=== PATIENT | female | born 1995 | race Caucasian/White ===

== ENCOUNTER → 2017-09-08 | Outpatient (CLI) | payer OTHER ==
[~2017-09-08] MED LIST: AZIT250 PO; AZO PO; CEPH500 PO; CODACE30 PO; CRANBERRY250 MG PO; Hydrocodone-Ap1 EA23 PO; LEVSOD75; METPRE4DP PO; NAPR500 PO; OXYACE5T PO; Pyridium200 MG PO
== END | disposition home or self-care (01) ==
LOC: LAB 10:02 → LAB SHORT 10:02
PROVIDERS: Obstetrics & Gynecology
DX: Z11.3 Encounter for screening for infections with a predominantly sexual mode of transmission (principal)
CPT/HCPCS: 87491; 87591; 87661

== ENCOUNTER → 2018-05-05 | Outpatient (CLI) | payer OTHER ==
[~2018-05-05] MED LIST changes: +ACYC400 PO; +FAMO20 PO; +HUMULIN N100 UNIT/1 SC; +Humalog100 UNIT/1 SC; +METF500C PO
== END ==
LOC: LAB SHORT 13:15 → LAB 13:15
DX: L98.8 Other specified disorders of the skin and subcutaneous tissue (principal); L02.411 Cutaneous abscess of right axilla
CPT/HCPCS: 87070; 87075; 87077; 87186; 87205

== ENCOUNTER 2018-05-19 11:58 | Day surgery (SDC) | payer OTHER | END 2018-05-19 22:48 | disposition home or self-care (01) | LOC: WOUND 11:58 | DX: L98.8 Other specified disorders of the skin and subcutaneous tissue (principal); E11.9 Type 2 diabetes mellitus without complications; E78.1 Pure hyperglyceridemia | CPT/HCPCS: 87070; 87075; 87205; G0463 ==

== ENCOUNTER 2018-05-26 00:58 | Day surgery (SDC) | payer OTHER | END 2018-05-26 23:59 | disposition home or self-care (01) | LOC: WOUND 00:58 | DX: Z48.00 Encounter for change or removal of nonsurgical wound dressing (principal); L98.8 Other specified disorders of the skin and subcutaneous tissue; E11.9 Type 2 diabetes mellitus without complications | CPT/HCPCS: G0463 ==

== ENCOUNTER → 2019-04-25 | Outpatient (CLI) | payer OTHER | END | disposition home or self-care (01) | LOC: LAB SHORT 12:45 → LAB 12:45 | DX: J02.9 Acute pharyngitis, unspecified (principal) | CPT/HCPCS: 87081; 87147 ==

== ENCOUNTER → 2019-06-10 | Outpatient (CLI) | payer OTHER | LOC: LAB SHORT 17:22 → LAB 17:22 | DX: L02.413 Cutaneous abscess of right upper limb (principal) | CPT/HCPCS: 87070; 87075; 87076; 87205 ==

== ENCOUNTER 2019-08-21 11:30 | Inpatient (IN) | payer OTHER ==
[~2019-08-21] VITALS: Ht 162.6 cm; Wt 133.0 kg
[2019-08-21 12:11] LABS: BASOPHILS ABSOLUTE AUTO 0.04 K/mm3 (0.00-0.23); BASOPHILS PERCENT AUTO 0 % (0-2); EOSINOPHILS ABSOLUTE AUTO 0.09 K/mm3 (0.00-0.68); EOSINOPHILS PERCENT AUTO 1 % (0-6); Hematocrit 38.7 % (33.0-51.0); Hemoglobin 12.7 g/dL (11.5-16.0); IMMATURE GRAN ABSOLUTE AUTO 0.06 K/mm3 (0.00-0.10); IMMATURE GRAN PERCENT AUTO 1 % (0-1); LYMPHOCYTES ABSOLUTE AUTO 2.26 K/mm3 (0.84-5.20); LYMPHOCYTES PERCENT AUTO 24 % (21-46); MONOCYTES ABSOLUTE AUTO 0.56 K/mm3 (0.16-1.47); MONOCYTES PERCENT AUTO 6 % (4-13); Mean Corpuscular HGB 27.3 pg (26.0-34.0); Mean Corpuscular HGB Conc 32.8 g/dL (31.5-36.5); Mean Corpuscular Volume 83 fL (80-100); Mean Platelet Volume 11.7 fL (9.1-12.4); NEUTROPHILS ABSOLUTE AUTO 6.62 K/mm3 (1.96-9.15); NEUTROPHILS PERCENT AUTO 69 % (41-73); Platelet Count 147 K/mm3 (150-400); RDW Coefficient Variation 13.8 % (11.7-14.2); RDW Standard Deviation 41.4 fL (35.1-46.3); Red Blood Cell Count 4.65 M/mm3 (3.80-5.20); White Blood Cell Count 9.63 K/mm3 (4.00-11.30)
[2019-08-21] MEDS ORDERED: TUMS500 MG PO (12:27)
[2019-08-21 12:34] LABS: Alanine Aminotransfer (ALT/SGP 13 U/L (12-78); Albumin/Globulin Ratio 0.4 (0.8-1.8); Alk Phos 97 U/L (50-136); Amylase, Blood 32 U/L (25-115); Anion Gap 8 mmol/L (6-16); Aspartate Aminotrans (AST/SGOT 11 U/L (12-37); Bilirubin, Total 0.2 mg/dL (0.1-1.0); Blood Urea Nitrogen 11 mg/dL (8-24); Bun/Creatinine Ratio 19.8 (12.0-20.0); CO2, Blood 21 mmol/L (21-32); Calcium, Blood 8.3 mg/dL (8.5-10.1); Chloride, Blood 107 mmol/L (98-108); Creatinine, Blood 0.56 mg/dL (0.40-1.00); Globulin, Blood 4.9 g/dL (2.2-4.0); Glomerular Filtration Rate >60 (60-); Glucose, Blood 204 mg/dL (70-99); Potassium, Blood 3.8 mmol/L (3.5-5.5); Sodium, Blood 136 mmol/L (136-145); Total Protein, Blood 6.9 g/dL (6.4-8.2)
[2019-08-21 13:29] LABS: Creatinine, Urine Random 36.7 mg/dL (27.00-270.00); Protein, Urine Random 27.4 mg/dL (0.0-11.9); Protein/Creat Ratio, Ur Random 0.7
[2019-08-22 03:43] LABS: BASOPHILS ABSOLUTE AUTO 0.04 K/mm3 (0.00-0.23); BASOPHILS PERCENT AUTO 0 % (0-2); EOSINOPHILS ABSOLUTE AUTO 0.11 K/mm3 (0.00-0.68); EOSINOPHILS PERCENT AUTO 1 % (0-6); Hematocrit 37.2 % (33.0-51.0); Hemoglobin 12.5 g/dL (11.5-16.0); IMMATURE GRAN ABSOLUTE AUTO 0.07 K/mm3 (0.00-0.10); IMMATURE GRAN PERCENT AUTO 1 % (0-1); LYMPHOCYTES ABSOLUTE AUTO 2.83 K/mm3 (0.84-5.20); LYMPHOCYTES PERCENT AUTO 29 % (21-46); MONOCYTES ABSOLUTE AUTO 0.58 K/mm3 (0.16-1.47); MONOCYTES PERCENT AUTO 6 % (4-13); Mean Corpuscular HGB 27.6 pg (26.0-34.0); Mean Corpuscular HGB Conc 33.6 g/dL (31.5-36.5); Mean Corpuscular Volume 82 fL (80-100); Mean Platelet Volume 11.3 fL (9.1-12.4); NEUTROPHILS ABSOLUTE AUTO 6.09 K/mm3 (1.96-9.15); NEUTROPHILS PERCENT AUTO 63 % (41-73); Platelet Count 143 K/mm3 (150-400); RDW Coefficient Variation 13.7 % (11.7-14.2); RDW Standard Deviation 40.4 fL (35.1-46.3); Red Blood Cell Count 4.53 M/mm3 (3.80-5.20); White Blood Cell Count 9.72 K/mm3 (4.00-11.30)
[2019-08-22] MEDS ORDERED: Novolin R100 UNIT/M SC (12:02)
[2019-08-22] MEDS ORDERED: Novolin R100 UNIT/M (12:03)
[2019-08-22] MEDS ORDERED: Humulin N100 UNIT/1 ×2 (12:04)
[2019-08-22] MEDS ORDERED: LEVSOD25 (12:06)
[2019-08-22 12:53] LABS: Protein, Urine Quantitative 41.1 mg/dL (0.0-11.9)
[2019-08-22 12:55] LABS: Creatinine Urine 58.2 mg/dL (27.00-270.00)
[2019-08-25 05:37] LABS: Protein, Urine Quantitative 53.8 mg/dL (0.0-11.9)
[2019-08-26 03:47] LABS: Source, Urine Clean Catch
[2019-08-26 03:49] LABS: Bilirubin, Urine Neg (Neg); Blood, Urine Neg (Neg); Glucose Qualitative, Urine Neg (Neg); Ketones, Urine Neg (Neg); Leukocyte Esterase, Urine 2+ (Neg); Nitrite, Urine Neg (Neg); Protein, Urine 1+ (Neg); Urobilinogen, Urine NORM (Normal); pH, Urine 6.5 (5.0-8.0)
[2019-08-26 03:56] LABS: Amorphous Light (0-Heavy); Appearance, Urine Hazy (Clear); Bacteria Rare /hpf; Color, Urine Yellow (P-Yellow); Red Blood Cells, Urine Not Seen /hpf (0-2); Squamous Epithelial Cells Mod /hpf (Few)
[2019-08-28 05:07] LABS: Alanine Aminotransfer (ALT/SGP 12 U/L (12-78); Albumin/Globulin Ratio 0.4 (0.8-1.8); Alk Phos 100 U/L (50-136); Anion Gap 8 mmol/L (6-16); Aspartate Aminotrans (AST/SGOT 14 U/L (12-37); Bilirubin, Total 0.4 mg/dL (0.1-1.0); Blood Urea Nitrogen 8 mg/dL (8-24); Bun/Creatinine Ratio 14.2 (12.0-20.0); CO2, Blood 20 mmol/L (21-32); Calcium, Blood 8.3 mg/dL (8.5-10.1); Chloride, Blood 110 mmol/L (98-108); Creatinine, Blood 0.56 mg/dL (0.40-1.00); Globulin, Blood 4.9 g/dL (2.2-4.0); Glomerular Filtration Rate >60 (60-); Glucose, Blood 78 mg/dL (70-99); Potassium, Blood 3.4 mmol/L (3.5-5.5); Sodium, Blood 138 mmol/L (136-145); Total Protein, Blood 6.9 g/dL (6.4-8.2)
[2019-08-28 05:29] LABS: BASOPHILS ABSOLUTE AUTO 0.04 K/mm3 (0.00-0.23); BASOPHILS PERCENT AUTO 0 % (0-2); EOSINOPHILS ABSOLUTE AUTO 0.07 K/mm3 (0.00-0.68); EOSINOPHILS PERCENT AUTO 1 % (0-6); IMMATURE GRAN ABSOLUTE AUTO 0.05 K/mm3 (0.00-0.10); IMMATURE GRAN PERCENT AUTO 1 % (0-1); LYMPHOCYTES ABSOLUTE AUTO 2.61 K/mm3 (0.84-5.20); LYMPHOCYTES PERCENT AUTO 27 % (21-46); MONOCYTES ABSOLUTE AUTO 0.54 K/mm3 (0.16-1.47); MONOCYTES PERCENT AUTO 6 % (4-13); Mean Corpuscular HGB 27.5 pg (26.0-34.0); Mean Corpuscular HGB Conc 33.3 g/dL (31.5-36.5); Mean Corpuscular Volume 83 fL (80-100); Mean Platelet Volume 12.2 fL (9.1-12.4); NEUTROPHILS ABSOLUTE AUTO 6.37 K/mm3 (1.96-9.15); NEUTROPHILS PERCENT AUTO 66 % (41-73); Platelet Count 164 K/mm3 (150-400); RDW Coefficient Variation 13.6 % (11.7-14.2); RDW Standard Deviation 40.3 fL (35.1-46.3); Red Blood Cell Count 4.72 M/mm3 (3.80-5.20); White Blood Cell Count 9.68 K/mm3 (4.00-11.30)
== END 2019-08-28 14:15 | disposition home or self-care (01) | DRG 831 ==
LOC: BC 11:30 → OBS 11:30 → BC 15:05
PROVIDERS: Family Medicine; Obstetrics & Gynecology; ADMIT Nurse Practitioner Obstetrics & Gynecology
DX: O10.913 Unspecified pre-existing hypertension complicating pregnancy, third trimester (principal); O24.12 Pre-existing type 2 diabetes mellitus, in childbirth; O98.513 Other viral diseases complicating pregnancy, third trimester; E11.9 Type 2 diabetes mellitus without complications; O99.283 Endocrine, nutritional and metabolic diseases complicating pregnancy, third trimester; E03.9 Hypothyroidism, unspecified; B00.9 Herpesviral infection, unspecified; O99.713 Diseases of the skin and subcutaneous tissue complicating pregnancy, third trimester; L73.2 Hidradenitis suppurativa; Z3A.34 34 weeks gestation of pregnancy
CPT/HCPCS: 36415; 36416; 59025; 80053; 81001; 81050; 82150; 82570; 82947; 83036; 83690; 84156; 84443; 85025; 87070; 87081; 87086; 87205; A9270-GY; C9113; J0690; J1815; J7120

== ENCOUNTER → 2019-12-05 | Outpatient (CLI) | payer OTHER ==
[~2019-12-05] MED LIST changes: +ACYC800; +Humulin N100 UNIT/1; +IBUP800 PO; +LABE200; +LABE200 PO; +LEVSOD25; +METF500 PO; +NIFE30ER PO; +Novolin R100 UNIT/M; +Novolin R100 UNIT/M SC; +Percocet 5-3251 EACH PO; +TUMS500 MG PO
== END | disposition home or self-care (01) ==
LOC: LAB 17:37 → LAB SHORT 17:37
DX: Z09 Encounter for follow-up examination after completed treatment for conditions other than malignant neoplasm (principal); Z86.14 Personal history of Methicillin resistant Staphylococcus aureus infection
CPT/HCPCS: 87070; 87075; 87205

== ENCOUNTER 2020-02-15 02:00 | Day surgery (SDC) | payer OTHER | END 2020-02-15 22:38 | disposition home or self-care (01) | LOC: WOUND 02:00 | DX: T81.31XA Disruption of external operation (surgical) wound, not elsewhere classified, initial encounter (principal); E11.9 Type 2 diabetes mellitus without complications; I10 Essential (primary) hypertension; E03.9 Hypothyroidism, unspecified; Z79.84 Long term (current) use of oral hypoglycemic drugs; Z79.899 Other long term (current) drug therapy | CPT/HCPCS: G0463 ==

== ENCOUNTER 2020-02-28 00:45 | Day surgery (SDC) | payer OTHER | END 2020-02-28 12:00 | disposition home or self-care (01) | LOC: WOUND 00:45 | DX: T81.31XD Disruption of external operation (surgical) wound, not elsewhere classified, subsequent encounter (principal); I10 Essential (primary) hypertension; E11.9 Type 2 diabetes mellitus without complications; E07.9 Disorder of thyroid, unspecified; F41.8 Other specified anxiety disorders; E78.1 Pure hyperglyceridemia; E88.81 Metabolic syndrome and other insulin resistance; Z79.84 Long term (current) use of oral hypoglycemic drugs; Z79.899 Other long term (current) drug therapy; Y83.8 Other surgical procedures as the cause of abnormal reaction of the patient, or of later complication, without mention of misadventure at the time of the procedure | CPT/HCPCS: G0463 ==

== ENCOUNTER 2020-03-20 00:17 | Day surgery (SDC) | payer OTHER | END 2020-03-20 23:17 | disposition home or self-care (01) | LOC: WOUND 00:17 | DX: T81.31XD Disruption of external operation (surgical) wound, not elsewhere classified, subsequent encounter (principal); I10 Essential (primary) hypertension; E11.9 Type 2 diabetes mellitus without complications; E07.9 Disorder of thyroid, unspecified; F41.8 Other specified anxiety disorders; E78.1 Pure hyperglyceridemia; E88.81 Metabolic syndrome and other insulin resistance; Z79.84 Long term (current) use of oral hypoglycemic drugs; Z79.899 Other long term (current) drug therapy; Y83.8 Other surgical procedures as the cause of abnormal reaction of the patient, or of later complication, without mention of misadventure at the time of the procedure | CPT/HCPCS: G0463 ==

== ENCOUNTER → 2020-05-03 | Outpatient (CLI) | payer OTHER ==
[~2020-05-03] MED LIST changes: +ONDA4ODT MM
[2020-05-04 11:44] LABS: Candida species (DNA Probe) Positive (NEGATIVE); G. vaginalis (DNA Probe) Negative (NEGATIVE); T. vaginalis (DNA Probe) Negative (NEGATIVE)
[2020-05-05 08:08] LABS: HIV SCREEN 4TH GENERATION WRFX Non Reactive (Non Reactive)
[2020-05-06 06:08] LABS: CHLAMYDIA TRACHOMATIS, NAA Negative (Negative)
== END ==
LOC: LAB SHORT 15:48 → PLD 15:48
PROVIDERS: Physician Assistant
DX: Z20.9 Contact with and (suspected) exposure to unspecified communicable disease (principal)
CPT/HCPCS: 86592; 87389; 87480; 87491; 87510; 87591; 87660

== ENCOUNTER → 2020-08-14 | Outpatient (CLI) | payer OTHER ==
[~2020-08-14] MED LIST changes: -ONDA4ODT MM
[2020-08-14 19:07] LABS: Hematocrit 42.2 % (33.0-51.0); Hemoglobin 15.1 g/dL (11.5-16.0); Mean Corpuscular HGB 30.6 pg (26.0-34.0); Mean Corpuscular HGB Conc 35.8 g/dL (31.5-36.5); Mean Corpuscular Volume 86 fL (80-100); Mean Platelet Volume 11.4 fL (9.1-12.4); Platelet Count 198 K/mm3 (150-400); RDW Standard Deviation 40.3 fL (35.1-46.3); Red Blood Cell Count 4.93 M/mm3 (3.80-5.20); White Blood Cell Count 9.01 K/mm3 (4.00-11.30)
[2020-08-14 19:27] LABS: BASOPHILS PERCENT MAN 0 % (0-2); EOSINOPHILS ABSOLUTE MAN 0.27 K/mm3 (0.00-0.68); EOSINOPHILS PERCENT MAN 3 % (0-6); LYMPHOCYTES ABSOLUTE MAN 2.25 K/mm3 (0.84-5.20); LYMPHOCYTES PERCENT MAN 25 % (21-46); METAMYELOCYTE ABSOLUTE MAN 0.09 K/mm3 (0.00-0.00); METAMYELOCYTE PERCENT MAN 1 % (0-0); MONOCYTES ABSOLUTE MAN 0.18 K/mm3 (0.16-1.47); MONOCYTES PERCENT MAN 2 % (4-13); NEUTROPHILS ABSOLUTE MAN 6.21 K/mm3 (1.96-9.15); SEG NEUTROPHILS PERCENT MAN 69 % (41-73); TOTAL CELLS COUNTED 100
[2020-08-14 19:36] LABS: Alanine Aminotransfer (ALT/SGP 57 U/L (12-78); Albumin, Blood 3.3 g/dL (3.4-5.0); Albumin/Globulin Ratio 0.6 (0.8-1.8); Alk Phos 125 U/L (50-136); Anion Gap 11 mmol/L (6-16); Aspartate Aminotrans (AST/SGOT 19 U/L (12-37); Bilirubin, Direct 0.1 mg/dL (0.0-0.3); Bilirubin, Indirect 0.5 mg/dL (0.1-0.7); Bilirubin, Total 0.6 mg/dL (0.1-1.0); Blood Urea Nitrogen 10 mg/dL (8-24); Bun/Creatinine Ratio 16.2 (12.0-20.0); CO2, Blood 22 mmol/L (21-32); Calcium, Blood 8.9 mg/dL (8.5-10.1); Chloride, Blood 98 mmol/L (98-108); Creatinine, Blood 0.62 mg/dL (0.40-1.00); Globulin, Blood 5.1 g/dL (2.2-4.0); Glomerular Filtration Rate >60 (60-); Glucose, Blood 380 mg/dL (70-99); Potassium, Blood 3.9 mmol/L (3.5-5.5); Sodium, Blood 131 mmol/L (136-145); Total Protein, Blood 8.4 g/dL (6.4-8.2)
== END ==
LOC: LAB SHORT 18:15 → LAB 18:15
PROVIDERS: Nurse Practitioner
DX: R10.2 Pelvic and perineal pain (principal)
CPT/HCPCS: 80053; 82248; 83036; 85007; 85027

== ENCOUNTER 2020-10-16 18:52 | Emergency (ER) | payer OTHER ==
[~2020-10-16] VITALS: Ht 162.6 cm; Wt 121.1 kg
[2020-10-16 19:59] LABS: BASOPHILS ABSOLUTE AUTO 0.06 K/mm3 (0.00-0.23); BASOPHILS PERCENT AUTO 1 % (0-2); EOSINOPHILS ABSOLUTE AUTO 0.28 K/mm3 (0.00-0.68); EOSINOPHILS PERCENT AUTO 2 % (0-6); Hematocrit 41.9 % (33.0-51.0); Hemoglobin 15.3 g/dL (11.5-16.0); IMMATURE GRAN ABSOLUTE AUTO 0.08 K/mm3 (0.00-0.10); IMMATURE GRAN PERCENT AUTO 1 % (0-1); LYMPHOCYTES ABSOLUTE AUTO 2.53 K/mm3 (0.84-5.20); LYMPHOCYTES PERCENT AUTO 21 % (21-46); MONOCYTES ABSOLUTE AUTO 0.62 K/mm3 (0.16-1.47); MONOCYTES PERCENT AUTO 5 % (4-13); Mean Corpuscular HGB 31.3 pg (26.0-34.0); Mean Corpuscular HGB Conc 36.5 g/dL (31.5-36.5); Mean Corpuscular Volume 86 fL (80-100); NEUTROPHILS ABSOLUTE AUTO 8.73 K/mm3 (1.96-9.15); NEUTROPHILS PERCENT AUTO 71 % (41-73); Platelet Count 222 K/mm3 (150-400); Red Blood Cell Count 4.89 M/mm3 (3.80-5.20)
[2020-10-16 20:28] LABS: Source, Urine Voided
[2020-10-16 20:35] LABS: Bilirubin, Urine Neg (Neg); Blood, Urine 2+ (Neg); Glucose Qualitative, Urine 4+ (Neg); Ketones, Urine 4+ (Neg); Leukocyte Esterase, Urine Neg (Neg); Nitrite, Urine Neg (Neg); Protein, Urine 4+ (Neg); Specific Gravity, Urine 1.015 (1.003-1.022); Urobilinogen, Urine NORM (Normal)
[2020-10-16 20:51] LABS: Appearance, Urine Hazy (Clear); Color, Urine Yellow (P-Yellow)
[2020-10-16 20:53] LABS: Bacteria Many /hpf; Squamous Epithelial Cells Many /hpf (Few)
[2020-10-16 20:54] LABS: Yeast/Fungi Urine Few /hpf
[2020-10-16 21:13] LABS: Alanine Aminotransfer (ALT/SGP 29 U/L (12-78); Albumin, Blood 3.3 g/dL (3.4-5.0); Albumin/Globulin Ratio 0.6 (0.8-1.8); Alk Phos 106 U/L (50-136); Anion Gap 12 mmol/L (6-16); Aspartate Aminotrans (AST/SGOT 61 U/L (12-37); Bilirubin, Total 0.8 mg/dL (0.1-1.0); Blood Urea Nitrogen 10 mg/dL (8-24); Bun/Creatinine Ratio 17.8 (12.0-20.0); CO2, Blood 14 mmol/L (21-32); Calcium, Blood 9.1 mg/dL (8.5-10.1); Chloride, Blood 105 mmol/L (98-108); Creatinine, Blood 0.56 mg/dL (0.40-1.00); Globulin, Blood 5.8 g/dL (2.2-4.0); Glomerular Filtration Rate >60 (60-); Glucose, Blood 342 mg/dL (70-99); Potassium, Blood 4.8 mmol/L (3.5-5.5); Sodium, Blood 131 mmol/L (136-145); Total Protein, Blood 9.1 g/dL (6.4-8.2)
[2020-10-16] MEDS ORDERED: ONDA4ODT MM (23:00)
== END 2020-10-16 23:10 | disposition home or self-care (01) ==
LOC: ER 18:52
PROVIDERS: Physician Assistant
DX: R10.10 Upper abdominal pain, unspecified (principal); R11.0 Nausea; Z79.899 Other long term (current) drug therapy
CPT/HCPCS: 36415; 76705; 80053; 81001; 81025; 83690; 85025; 99284-25; A9270

== ENCOUNTER → 2020-11-17 | Outpatient (CLI) | payer OTHER ==
[~2020-11-17] MED LIST changes: +ONDA4ODT MM
== END ==
LOC: LAB 15:20 → LAB SHORT 15:20
DX: E11.65 Type 2 diabetes mellitus with hyperglycemia (principal)
CPT/HCPCS: 82043

== ENCOUNTER → 2021-06-17 | Outpatient (CLI) | payer OTHER ==
[2021-06-17 11:44] LABS: BASOPHILS ABSOLUTE AUTO 0.05 K/mm3 (0.00-0.23); BASOPHILS PERCENT AUTO 0 % (0-2); EOSINOPHILS ABSOLUTE AUTO 0.18 K/mm3 (0.00-0.68); EOSINOPHILS PERCENT AUTO 1 % (0-6); IMMATURE GRAN ABSOLUTE AUTO 0.09 K/mm3 (0.00-0.10); IMMATURE GRAN PERCENT AUTO 1 % (0-1); LYMPHOCYTES ABSOLUTE AUTO 2.02 K/mm3 (0.84-5.20); LYMPHOCYTES PERCENT AUTO 16 % (21-46); MONOCYTES ABSOLUTE AUTO 0.71 K/mm3 (0.16-1.47); MONOCYTES PERCENT AUTO 6 % (4-13); Mean Corpuscular HGB 29.9 pg (26.0-34.0); Mean Corpuscular Volume 86 fL (80-100); Mean Platelet Volume 10.6 fL (9.1-12.4); NEUTROPHILS ABSOLUTE AUTO 9.69 K/mm3 (1.96-9.15); NEUTROPHILS PERCENT AUTO 76 % (41-73); Platelet Count 184 K/mm3 (150-400); RDW Standard Deviation 39.4 fL (35.1-46.3); Red Blood Cell Count 4.68 M/mm3 (3.80-5.20); White Blood Cell Count 12.74 K/mm3 (4.00-11.30)
[2021-06-17 11:54] LABS: Anion Gap 14 mmol/L (6-16); Blood Urea Nitrogen 9 mg/dL (8-24); Bun/Creatinine Ratio 12.7 (12.0-20.0); CO2, Blood 23 mmol/L (21-32); Calcium, Blood 8.4 mg/dL (8.5-10.1); Chloride, Blood 98 mmol/L (98-108); Creatinine, Blood 0.71 mg/dL (0.40-1.00); Glomerular Filtration Rate >60 (60-); Glucose, Blood 410 mg/dL (70-99); Potassium, Blood 4.1 mmol/L (3.5-5.5); Sodium, Blood 135 mmol/L (136-145)
== END ==
LOC: LAB 11:37 → LAB SHORT 11:37
PROVIDERS: Chiropractor
DX: J36 Peritonsillar abscess (principal)
CPT/HCPCS: 80048; 85025

== ENCOUNTER 2021-10-28 22:13 | Emergency (ER) | payer OTHER ==
[~2021-10-28] VITALS: Ht 162.6 cm; Wt 117.9 kg
[2021-10-29] MEDS ORDERED: Vibramycin100 MG PO (00:44)
[2021-10-29] MEDS ORDERED: GEMFIBROZIL600 MG PO (00:52)
[2021-10-29] MEDS ORDERED: INSULIN GL100 UNIT/2 SQ (00:52)
== END 2021-10-29 00:53 | disposition home or self-care (01) ==
LOC: ER 22:13
DX: L02.411 Cutaneous abscess of right axilla (principal); L73.2 Hidradenitis suppurativa; E03.9 Hypothyroidism, unspecified; E11.9 Type 2 diabetes mellitus without complications; I10 Essential (primary) hypertension; Z79.84 Long term (current) use of oral hypoglycemic drugs; Z79.899 Other long term (current) drug therapy
CPT/HCPCS: 99282; A9270

== ENCOUNTER → 2021-11-03 | Outpatient (CLI) | payer OTHER ==
[~2021-11-03] MED LIST changes: +GEMFIBROZIL600 MG PO; +INSULIN GL100 UNIT/2 SQ; +Vibramycin100 MG PO
== END ==
LOC: LAB 16:15 → LAB SHORT 16:15
DX: L02.411 Cutaneous abscess of right axilla (principal)
CPT/HCPCS: 87070; 87075; 87205

== ENCOUNTER 2021-11-11 20:18 | Emergency (ER) | payer OTHER ==
[~2021-11-11] VITALS: Ht 162.6 cm; Wt 117.9 kg
[2021-11-11] MEDS ORDERED: ERYT1OIN LEFTEYE (22:15)
== END 2021-11-11 22:38 | disposition home or self-care (01) ==
LOC: ER 20:18
DX: H16.002 Unspecified corneal ulcer, left eye (principal); Z79.4 Long term (current) use of insulin
CPT/HCPCS: A9270

== ENCOUNTER → 2022-02-04 | Outpatient (CLI) | payer OTHER ==
[~2022-02-04] MED LIST changes: +ERYT1OIN LEFTEYE
== END | disposition home or self-care (01) ==
LOC: LAB SHORT 08:09 → LAB 08:09
DX: L08.0 Pyoderma (principal)
CPT/HCPCS: 87070; 87077; 87147; 87186; 87205

== ENCOUNTER 2022-05-16 20:05 | Emergency (ER) | payer OTHER ==
[~2022-05-16] VITALS: Ht 167.6 cm; Wt 90.7 kg
== END 2022-05-16 21:20 | disposition home or self-care (01) ==
LOC: ER 20:05
DX: K02.9 Dental caries, unspecified (principal); Z79.899 Other long term (current) drug therapy
CPT/HCPCS: 64400; 99282-25

== ENCOUNTER 2022-07-13 19:19 | Inpatient (IN) | payer OTHER ==
[~2022-07-13] VITALS: Ht 162.6 cm; Wt 110.5 kg
[2022-07-13 20:16] LABS: Source, Urine Clean Catch
[2022-07-13 20:28] LABS: Appearance, Urine Clear (Clear); Bilirubin, Urine Neg (Neg); Blood, Urine 1+ (Neg); Color, Urine Yellow (P-Yellow); Glucose Qualitative, Urine 4+ (Neg); Ketones, Urine 2+ (Neg); Leukocyte Esterase, Urine Neg (Neg); Nitrite, Urine Neg (Neg); Protein, Urine 3+ (Neg); Specific Gravity, Urine 1.015 (1.003-1.022); Urobilinogen, Urine NORM (Normal)
[2022-07-13 20:35] LABS: Bacteria Few /hpf; Squamous Epithelial Cells Few /hpf (Few); White Blood Cells, Urine 0-2 /hpf (0-5)
[2022-07-13 20:46] LABS: BASOPHILS ABSOLUTE AUTO 0.06 K/mm3 (0.00-0.23); BASOPHILS PERCENT AUTO 1 % (0-2); EOSINOPHILS ABSOLUTE AUTO 0.19 K/mm3 (0.00-0.68); EOSINOPHILS PERCENT AUTO 1 % (0-6); Hematocrit 42.2 % (33.0-51.0); Hemoglobin 14.8 g/dL (11.5-16.0); IMMATURE GRAN ABSOLUTE AUTO 0.05 K/mm3 (0.00-0.10); IMMATURE GRAN PERCENT AUTO 0 % (0-1); LYMPHOCYTES ABSOLUTE AUTO 3.09 K/mm3 (0.84-5.20); LYMPHOCYTES PERCENT AUTO 23 % (21-46); MONOCYTES ABSOLUTE AUTO 0.55 K/mm3 (0.16-1.47); MONOCYTES PERCENT AUTO 4 % (4-13); Mean Corpuscular HGB 29.7 pg (26.0-34.0); Mean Corpuscular Volume 85 fL (80-100); NEUTROPHILS ABSOLUTE AUTO 9.33 K/mm3 (1.96-9.15); NEUTROPHILS PERCENT AUTO 70 % (41-73); NRBC ABSOLUTE 0.15 K/mm3 (0.00-0.02); NRBC Auto 1.1 /100 WBC (0.0-0.2); RDW Coefficient Variation 13.1 % (11.7-14.2); RDW Standard Deviation 39.8 fL (35.1-46.3); Red Blood Cell Count 4.99 M/mm3 (3.80-5.20); White Blood Cell Count 13.27 K/mm3 (4.00-11.30)
[2022-07-13 20:48] LABS: Mean Platelet Volume 10.5 fL (9.1-12.4); Platelet Count 192 K/mm3 (150-400)
[2022-07-13 20:50] LABS: Mean Corpuscular HGB Conc 35.1 g/dL (31.5-36.5)
[2022-07-13 20:59] LABS: Alanine Aminotransfer (ALT/SGP 39 U/L (12-78); Albumin, Blood 3.3 g/dL (3.4-5.0); Albumin/Globulin Ratio 0.6 (0.8-1.8); Alk Phos 98 U/L (50-136); Anion Gap 7 mmol/L (6-16); Aspartate Aminotrans (AST/SGOT 99 U/L (12-37); Bilirubin, Total 0.3 mg/dL (0.1-1.0); Blood Urea Nitrogen 11 mg/dL (8-24); Bun/Creatinine Ratio 20.7 (12.0-20.0); CO2, Blood 26 mmol/L (21-32); Calcium, Blood 9.2 mg/dL (8.5-10.1); Chloride, Blood 97 mmol/L (98-108); Creatinine, Blood 0.53 mg/dL (0.40-1.00); Globulin, Blood 5.2 g/dL (2.2-4.0); Glomerular Filtration Rate 130 (60-); Glucose, Blood 436 mg/dL (70-99); Total Protein, Blood 8.5 g/dL (6.4-8.2)
[2022-07-13 21:00] LABS: Sodium, Blood 130 mmol/L (136-145)
[2022-07-14 00:35] LABS: Cholesterol 310 mg/dL (50-200); Triglycerides 3665 mg/dL (30-140)
--- NOTE | 2022-07-14 08:00 | NUR ---
ARRIVAL TO ICU PT TRANSFERS SELF TO ICU BED. CBG 280, INSULIN GTT RESUMED AT 2UNITS/HR AND D5 1/2NS 75ML/HR. PT REPORTS 2/10 EPIGASTRIC PAIN, AREA NONTENDER. SHE IS A&OX4, PROVIDES MEDICAL HISTORY AND PARTICIPATES IN CARE. PT HYPERTENSIVE ON MONITOR WITH SBP 150S, DBP >100. HR 80S. BED IN LOW POSITION, CALL LIGHT WITHIN REACH.
[2022-07-14] MEDS ORDERED: LISI5 PO (08:19)
[2022-07-14 08:37] LABS: BASOPHILS ABSOLUTE AUTO 0.06 K/mm3 (0.00-0.23); BASOPHILS PERCENT AUTO 1 % (0-2); EOSINOPHILS ABSOLUTE AUTO 0.25 K/mm3 (0.00-0.68); EOSINOPHILS PERCENT AUTO 3 % (0-6); Hematocrit 37.4 % (33.0-51.0); IMMATURE GRAN ABSOLUTE AUTO 0.04 K/mm3 (0.00-0.10); IMMATURE GRAN PERCENT AUTO 1 % (0-1); LYMPHOCYTES ABSOLUTE AUTO 2.66 K/mm3 (0.84-5.20); LYMPHOCYTES PERCENT AUTO 31 % (21-46); MONOCYTES ABSOLUTE AUTO 0.48 K/mm3 (0.16-1.47); MONOCYTES PERCENT AUTO 6 % (4-13); Mean Corpuscular HGB 31.2 pg (26.0-34.0); Mean Corpuscular HGB Conc 37.4 g/dL (31.5-36.5); Mean Corpuscular Volume 83 fL (80-100); Mean Platelet Volume 10.8 fL (9.1-12.4); NEUTROPHILS ABSOLUTE AUTO 5.17 K/mm3 (1.96-9.15); NEUTROPHILS PERCENT AUTO 60 % (41-73); Platelet Count 166 K/mm3 (150-400); RDW Coefficient Variation 12.8 % (11.7-14.2); RDW Standard Deviation 38.3 fL (35.1-46.3); Red Blood Cell Count 4.49 M/mm3 (3.80-5.20); White Blood Cell Count 8.66 K/mm3 (4.00-11.30)
[2022-07-14 10:22] LABS: Albumin, Blood 2.8 g/dL (3.4-5.0); Albumin/Globulin Ratio 0.7 (0.8-1.8); Bilirubin, Total 0.6 mg/dL (0.1-1.0); Bun/Creatinine Ratio 24.4 (12.0-20.0); Calcium, Blood 7.8 mg/dL (8.5-10.1); Creatinine, Blood 0.45 mg/dL (0.40-1.00); Globulin, Blood 4.2 g/dL (2.2-4.0); Potassium, Blood 3.6 mmol/L (3.5-5.5)
--- NOTE | 2022-07-14 12:35 | NUR ---
UPDATE PT HAS BEEN RESTING AND SLEEPING. SHE IS RECEIVING INSULIN GTT 9UNITS/HR AND D5 1/2NS AT 75ML/HR. DENIES PAIN AT THIS TIME. TOLERATED CLEAR LIQUID LUNCH WELL. BED IN LOW POSITION AND CALL LIGHT WITHIN REACH.
[2022-07-14 14:37] LABS: Anion Gap 9 mmol/L (6-16); Blood Urea Nitrogen 9 mg/dL (8-24); Bun/Creatinine Ratio 17.2 (12.0-20.0); CO2, Blood 23 mmol/L (21-32); Calcium, Blood 8.5 mg/dL (8.5-10.1); Chloride, Blood 104 mmol/L (98-108); Creatinine, Blood 0.52 mg/dL (0.40-1.00); Glomerular Filtration Rate 131 (60-); Glucose, Blood 304 mg/dL (70-99); Potassium, Blood 3.5 mmol/L (3.5-5.5); Sodium, Blood 136 mmol/L (136-145); Triglycerides 2435 mg/dL (30-140)
--- NOTE | 2022-07-14 18:08 | NUR ---
SHIFT SUMMARY PT IS RECEIVING INSULIN 10UNITS/HR, D5 1/2NS 75ML/HR, AND KCL. SHE IS A&OX4. LUNGS ARE CLEAR THROUGHOUT. NSR ON MONITOR WITH RATE 80S-90S. SBP 130S-140S. CLEAR LIQUID DIET, PT TOLERATING WELL. BOWEL TONES ACTIVE, ABDOMEN SOFT AND NONTENDER. URINE IS CLEAR YELLOW. BED IN LOW POSITION AND CALL LIGHT WITHIN REACH.
--- NOTE | 2022-07-14 19:30 | NUR ---
ASSUMED CARE PATIENT A&O X 4. PAIN CURRENTLY CONTROLLED. INSULIN, D5 1/2NS AND POTASSIUM CURRENTLY INFUSING. CALL LIGHT WITHIN REACH.
[2022-07-14 20:39] LABS: Bun/Creatinine Ratio 16.2 (12.0-20.0); Calcium, Blood 7.9 mg/dL (8.5-10.1); Creatinine, Blood 0.43 mg/dL (0.40-1.00); Potassium, Blood 3.9 mmol/L (3.5-5.5)
[2022-07-15 04:02] LABS: Anion Gap 6 mmol/L (6-16); Blood Urea Nitrogen 7 mg/dL (8-24); Bun/Creatinine Ratio 14.6 (12.0-20.0); CO2, Blood 24 mmol/L (21-32); Calcium, Blood 7.9 mg/dL (8.5-10.1); Chloride, Blood 105 mmol/L (98-108); Creatinine, Blood 0.48 mg/dL (0.40-1.00); Glomerular Filtration Rate 133 (60-); Glucose, Blood 223 mg/dL (70-99); Potassium, Blood 3.6 mmol/L (3.5-5.5); Sodium, Blood 135 mmol/L (136-145); Triglycerides 1618 mg/dL (30-140)
--- NOTE | 2022-07-15 04:35 | NUR ---
NOTIFIED OF POTASSIUM AT 3.6 ON INSULIN DRIP. ORDERS RECEIVED.
--- NOTE | 2022-07-15 05:53 | NUR ---
PATIENT CONTINUES ON INSULIN DRIP. ALERT AND ORIENTED VS STABLE ON ROOM AIR. MEDICATED FOR PAIN/NAUSEA X1.
--- NOTE | 2022-07-15 07:17 | NUR ---
ASSUMPTION OF CARE PT IS RECEIVING INSULIN 4UNITS/HR, D5 1/2NS 75ML/HR, AND KCL. SINUS ON MONITOR WITH RATE IN 80S, BP STABLE. PT CURRENTLY RESTING. BED IN LOW POSITION AND CALL LIGHT WITHIN REACH.
[2022-07-15 15:45] LABS: Anion Gap 5 mmol/L (6-16); Blood Urea Nitrogen 5 mg/dL (8-24); Bun/Creatinine Ratio 9.7 (12.0-20.0); CO2, Blood 23 mmol/L (21-32); Calcium, Blood 8.2 mg/dL (8.5-10.1); Chloride, Blood 107 mmol/L (98-108); Creatinine, Blood 0.51 mg/dL (0.40-1.00); Glomerular Filtration Rate 131 (60-); Glucose, Blood 203 mg/dL (70-99); Potassium, Blood 3.7 mmol/L (3.5-5.5); Sodium, Blood 135 mmol/L (136-145); Triglycerides 1417 mg/dL (30-140)
--- NOTE | 2022-07-15 18:34 | NUR ---
SHIFT SUMMARY PT IS RECEIVING INSULIN 4UNITS/HR AND D5 1/2NS 75ML/HR. PT A&OX4, INDEPENDENT IN ROOM. LUNGS ARE CLEAR THROUGHOUT. BOWEL TONES HYPOACTIVE, ABDOMEN SOFT. OCCASIONAL EPIGASTRIC DISCOMFORT. TOLERATING CLEAR LIQUID DIET WELL. HR 80S-90S ON MONITOR. PT HYPERTENSIVE, MEDICATED PER EMAR. PT AMBULATES TO TOILET TO VOID WITH ADEQUATE URINE OUTPUT. BED IN LOW POSITION AND CALL LIGHT WITHIN REACH.
--- NOTE | 2022-07-15 20:36 | NUR ---
ASSUMED CARE AT 1900 PATIENT IS ALERT AND ORIENTED X4. 02 SATS >95% ON RA. HR SR 90s, BP STABLE. DENIES CP/PRESSURE. INDEPENDENT IN ROOM. INSULIN DRIP INF WELL D5 1/2 NS. PATIENT SHOWERED WITH CNAs ASSISTANCE. CALL LIGHT IN REACH
[2022-07-16 03:49] LABS: Anion Gap 5 mmol/L (6-16); Blood Urea Nitrogen 5 mg/dL (8-24); CO2, Blood 25 mmol/L (21-32); Calcium, Blood 8.5 mg/dL (8.5-10.1); Chloride, Blood 106 mmol/L (98-108); Glomerular Filtration Rate 132 (60-); Glucose, Blood 182 mg/dL (70-99); Potassium, Blood 3.3 mmol/L (3.5-5.5); Sodium, Blood 136 mmol/L (136-145); Triglycerides 971 mg/dL (30-140)
--- NOTE | 2022-07-16 05:52 | NUR ---
SHIFT SUMMARY PATIENT REMAINS ALERT AND ORIENTED X4. 02 SATS >95% ON RA. HR SR 77, BP STABLE. INSULIN DRIP AND D5 1/2 NS REMAINS INFUSING. REPLACING POTASSIUM THIS AM. PT UP TO TOILET, HELP WITH CORDS AND IV ONLY. CALL LIGHT IN REACH.
--- NOTE | 2022-07-16 07:00 | NUR ---
ASSUMPTION OF CARE PT REMAINS ON INSULIN GTT AT 3UNITS/HR AND D5 1/2NS 75ML/HR. SHE IS CURRENTLY RESTING, DENIES NEEDS AT THIS TIME. VSS. BED IN LOW POSITION AND CALL LIGHT WITHIN REACH.
--- NOTE | 2022-07-16 08:59 | NUR ---
UPDATE INSULIN GTT AND D5 1/2NS STOPPED. SC INSULIN ADMINISTERED PER EMAR. PT REMAINS A&OX4. DENIES PAIN/DISCOMFORT THIS MORNING. SHE DENIES NAUSEA. DIET UPGRADED TO ADA. VSS. BED IN LOW POSITION AND CALL LIGHT WITHIN REACH.
--- NOTE | 2022-07-16 13:48 | NUR ---
UPDATE PT REMAINS A&OX4 WITH VERY PLEASANT AFFECT. LUNGS ARE CLEAR THROUGHOUT. SINUS RHYTHM ON MONITOR WITH RATE 80S. BP STABLE. PT TOLERATING ADA DIET WELL. DENIES GI DISCOMFORT. PT HAD 1 BM THIS SHIFT AND HAS VOIDED TWICE. URINE YELLOW/CLEAR. FRIEND WAS VISITING AT BEDSIDE. PT UPDATED ABOUT PLAN TO TRANSITION TO MEDICAL FLOOR. SHE STS SHE HAS NO QUESTIONS AT THIS TIME. BED IN LOW POSITION AND CALL LIGHT WITHIN REACH.
--- NOTE | 2022-07-16 14:52 | NUR ---
PT PACKAGED PERSONAL BELONGINGS UP AND TAKEN TO 334. PT TRANSPORTED BY [employer] VIA WHEELCHAIR.
--- NOTE | 2022-07-16 15:16 | NUR ---
LATE ENTRY/1430: RECEIVED REPORT FROM POWER BUILDER DEVELOPER. 1555: RECEIVED PT VIA W/C ICU TRANSFER. PLACED IN BED, MADE COMFORTABLE, ORIENTED TO ROOM AND UNIT ROUTINE. CALL LIGHT MADE ACCESSIBLE. PT A&O X 4. PLEASANT & COOPERATIVE WITH ALL CARE.
--- NOTE | 2022-07-16 18:12 | NUR ---
SHIFT SUMMARY PT HAS BEEN COMFORTABLE SINCE TRANSFER FROM ICU, NO COMPLAINTS. DENIES PAIN. BLOOD SUGAR AT DINNER COVERED WITH INSULIN ORDERED. IS PLEASANT & COOPERATIVE WITH ALL CARE. IS INDEPENDENT IN THE ROOM.
--- NOTE | 2022-07-17 04:32 | NUR ---
SHIFT UNREMARKABLE. PT TOOK 2100 MEDICATIONS LATE AND HAS SLEPT THROUGH MUCH OF REMAINDER OF SHIFT. GAVE CBG COVERAGE OF 1 UNIT OF HUMALOG. PT HAS DENIED PAIN OR DISCOMFORT. CALL LIGHT LEFT WITHIN REACH.
[2022-07-17 06:28] LABS: Anion Gap 5 mmol/L (6-16); Blood Urea Nitrogen 9 mg/dL (8-24); Bun/Creatinine Ratio 17.6 (12.0-20.0); CO2, Blood 23 mmol/L (21-32); Calcium, Blood 8.9 mg/dL (8.5-10.1); Chloride, Blood 103 mmol/L (98-108); Creatinine, Blood 0.51 mg/dL (0.40-1.00); Glomerular Filtration Rate 131 (60-); Glucose, Blood 293 mg/dL (70-99); Potassium, Blood 3.7 mmol/L (3.5-5.5); Sodium, Blood 131 mmol/L (136-145); Triglycerides 911 mg/dL (30-140)
[2022-07-17] MEDS ORDERED: EZET10 PO (12:40)
--- NOTE | 2022-07-17 13:00 | NUR ---
PT DISCHARGED FROM UNIT. IV REMOVED. DISCHARGE INSTRUCTIONS REVIEWED AND SENT WITH PT. MEDICATIONS FAXED TO PHARMACY. PT LEFT UNIT WITH FAMILY.
== END 2022-07-17 13:03 | disposition home or self-care (01) | DRG 439 ==
LOC: ER 19:19 → ERHOLD 07-14 01:29 → ICUE 07-14 07:55 → MEDS 07-16 14:48
PROVIDERS: Internal Medicine; Student in an Organized Health Care Education/Training Program; ADMIT Internal Medicine
DX: K85.90 Acute pancreatitis without necrosis or infection, unspecified (principal); E87.1 Hypo-osmolality and hyponatremia; I10 Essential (primary) hypertension; E78.1 Pure hyperglyceridemia; E87.6 Hypokalemia; E78.00 Pure hypercholesterolemia, unspecified; L73.2 Hidradenitis suppurativa; E11.65 Type 2 diabetes mellitus with hyperglycemia; Z98.890 Other specified postprocedural states; Z79.4 Long term (current) use of insulin; Z79.899 Other long term (current) drug therapy; Z79.84 Long term (current) use of oral hypoglycemic drugs; Z86.59 Personal history of other mental and behavioral disorders
CPT/HCPCS: 36415; 76705; 80048; 80053; 81001; 81025; 82465; 82947; 83690; 84478; 85025; 93005; 93010; 96365; 96366; 96375; 99285-25; A9270; J0360; J1650; J1815; J1885; J2405; J3010; J3480; J7042; J7050; J7120

== ENCOUNTER → 2023-03-20 | Outpatient (CLI) | payer OTHER ==
[~2023-03-20] MED LIST changes: +EZET10 PO; +LISI5 PO
[2023-03-21 11:11] LABS: Candida species (DNA Probe) Negative (NEGATIVE); G. vaginalis (DNA Probe) Positive (NEGATIVE); T. vaginalis (DNA Probe) Negative (NEGATIVE)
[2023-03-23 04:11] LABS: CHLAMYDIA TRACHOMATIS, NAA Negative (Negative)
== END ==
LOC: LAB SHORT 13:32 → LAB 13:32
PROVIDERS: Family Medicine
DX: N89.8 Other specified noninflammatory disorders of vagina (principal); R82.90 Unspecified abnormal findings in urine
CPT/HCPCS: 87086; 87480; 87491; 87510; 87591; 87660

== ENCOUNTER → 2023-04-04 | Outpatient (CLI) | payer OTHER ==
[2023-04-04 10:26] LABS: BASOPHILS ABSOLUTE AUTO 0.05 K/mm3 (0.00-0.23); BASOPHILS PERCENT AUTO 0 % (0-2); EOSINOPHILS ABSOLUTE AUTO 0.21 K/mm3 (0.00-0.68); EOSINOPHILS PERCENT AUTO 2 % (0-6); Hematocrit 41.9 % (33.0-51.0); Hemoglobin 15.3 g/dL (11.5-16.0); IMMATURE GRAN ABSOLUTE AUTO 0.08 K/mm3 (0.00-0.10); IMMATURE GRAN PERCENT AUTO 1 % (0-1); LYMPHOCYTES ABSOLUTE AUTO 2.43 K/mm3 (0.84-5.20); LYMPHOCYTES PERCENT AUTO 22 % (21-46); MONOCYTES ABSOLUTE AUTO 0.53 K/mm3 (0.16-1.47); MONOCYTES PERCENT AUTO 5 % (4-13); Mean Corpuscular HGB 30.7 pg (26.0-34.0); Mean Corpuscular HGB Conc 36.5 g/dL (31.5-36.5); Mean Corpuscular Volume 84 fL (80-100); Mean Platelet Volume 10.7 fL (9.1-12.4); NEUTROPHILS ABSOLUTE AUTO 7.99 K/mm3 (1.96-9.15); NEUTROPHILS PERCENT AUTO 71 % (41-73); Platelet Count 192 K/mm3 (150-400); RDW Coefficient Variation 12.5 % (11.7-14.2); RDW Standard Deviation 37.4 fL (35.1-46.3); Red Blood Cell Count 4.99 M/mm3 (3.80-5.20); White Blood Cell Count 11.29 K/mm3 (4.00-11.30)
== END | disposition home or self-care (01) ==
LOC: LAB 10:14 → LAB SHORT 10:14
PROVIDERS: Physician Assistant
DX: N39.0 Urinary tract infection, site not specified (principal); E11.65 Type 2 diabetes mellitus with hyperglycemia
CPT/HCPCS: 85025; 87077; 87086; 87186

== ENCOUNTER 2023-06-11 17:45 | Emergency (ER) | payer OTHER ==
[~2023-06-11] VITALS: Ht 162.6 cm; Wt 113.4 kg
[2023-06-11 18:06] VITALS: BP 169/112
[2023-06-11] MEDS ORDERED: Ketorolac Tromethamine 30mg Vial IM ONE (19:55)
[2023-06-11] MEDS ORDERED: RX Prepack 6 Tabs Oxycodone 5mg UD ONE (20:00)
== END 2023-06-11 20:10 | disposition home or self-care (01) ==
LOC: ER 17:45
DX: K08.89 Other specified disorders of teeth and supporting structures (principal); Z79.84 Long term (current) use of oral hypoglycemic drugs; Z79.4 Long term (current) use of insulin; Z79.899 Other long term (current) drug therapy
CPT/HCPCS: 96372; 99282-25; A9270; J1885